=== PATIENT | male | born 1955 | race Caucasian/White ===

== ENCOUNTER 2020-02-10 15:59 | Emergency (ER) | payer MEDICARE ==
[2020-02-10] MEDS ORDERED: Clindamycin 150 MG CAP ONE (16:23)
[2020-02-10] MEDS ORDERED: Adacel (T-DAP) 0.5 ML SYRINGE ONE (16:23)
[2020-02-10] MEDS ORDERED: HYDROcodone/Acetaminophen 10/325 mg Tablet ONE (16:23)
[2020-02-10] MEDS ORDERED: Bupivacaine 0.5% 10 ML VIAL ONE (16:23)
[2020-02-10] MEDS ORDERED: Lidocaine 1% PF 5 ML VIAL ONE (17:12)
[2020-02-10] MEDS ORDERED: Ibuprofen 800 MG TAB ONE (18:17)
--- NOTE | 2020-02-11 07:52 | RAD ---
LEFT HAND 3 VIEWS: Date: 02/10/2020 Comminuted fractures are seen through the terminal tuft of the distal phalanges of the second and thi rd digit. There is also a fracture at the base of the distal phalanx of the third digit. The remainde r of the hand and wrist appeared intact. There may be some opaque foreign bodies in the tip of the in dex finger. An old, healed fifth metacarpal fracture was seen. IMPRESSION: Acute fractures of the distal phalanges of the second and third digits. POS: HOME
== END 2020-02-10 18:22 | disposition home or self-care (01) ==
LOC: BURERS 15:59
DX: S62.631B Displaced fracture of distal phalanx of left index finger, initial encounter for open fracture (principal); S62.633B Displaced fracture of distal phalanx of left middle finger, initial encounter for open fracture; Z23 Encounter for immunization; E78.5 Hyperlipidemia, unspecified; Z79.899 Other long term (current) drug therapy; W29.8XXA Contact with other powered hand tools and household machinery, initial encounter
CPT/HCPCS: 12001; 26236; 90471; 90715; J3490